=== PATIENT | male | born 1975 | race Two or more races ===

== ENCOUNTER 2023-08-31 13:08 | Inpatient (IN) | payer MEDICAID ==
[~2023-08-31] VITALS: Ht 172.7 cm; Wt 73.0 kg
[2023-08-31] MEDS ORDERED: ONDANSETRON HCL/PF 4 MG/2 ML VIAL ONE (13:30)
[2023-08-31] MEDS ORDERED: MORPHINE SULFATE INJ 4 MG/ML DISP.SYRIN ONE (13:31)
[2023-08-31] MEDS ORDERED: MORPHINE SULFATE INJ 2 MG/ML DISP.SYRIN ONE (13:31)
[2023-08-31] MEDS ORDERED: TDAP [DIPH/PERTUSSIS/TET] 0.5 ML VIAL IM ONE (13:32)
[2023-08-31] MEDS: TDAP [DIPH/PERTUSSIS/TET] 0.5 ML VIAL IM ONE (13:42)
[2023-08-31] MEDS: CEFAZOLIN 1 GM in IV D5W 50 ML IV ONE (13:42)
[2023-08-31] MEDS: MORPHINE SULFATE INJ 2 MG/ML DISP.SYRIN IV ONE (13:43)
[2023-08-31] MEDS: ONDANSETRON HCL/PF 4 MG/2 ML VIAL IVP ONE (13:43)
[2023-08-31 13:54] LABS: BASOPHILS % (AUTO) 0.5 % (0.0-2.0); EOSINOPHILS % (AUTO) 0.6 % (0.0-6.0); HEMATOCRIT 45 % (39-51); HEMOGLOBIN 15.3 g/dL (13.5-17.5); LYMPHOCYTES # (AUTO) 1.9 K/uL (0.8-4.8); LYMPHOCYTES % (AUTO) 23.5 % (20.0-44.0); MEAN CORPUSCULAR HEMOGLOBIN 31 PG (26.0-33.0); MEAN CORPUSCULAR HGB CONC 34 g/dl (31.0-36.0); MEAN CORPUSCULAR VOLUME 92 fL (80-96); MONOCYTES # (AUTO) 0.6 K/uL (0.1-1.30); MONOCYTES % (AUTO) 7.3 % (2.0-12.0); NEUTROPHILS # (AUTO) 5.6 K/uL (1.8-8.9); NEUTROPHILS % (AUTO) 68.1 % (43.0-81.0); PLATELET COUNT (AUTO) 297 K/uL (150-450); RED CELL DISTRIBUTION WIDTH 13.7 % (11.5-15.0); WHITE BLOOD COUNT (AUTO) 8.3 K/uL (4.3-11.0)
[2023-08-31] MEDS ORDERED: HYDROMORPHONE 1 MG/1 ML DISP.SYRIN ONE (13:57)
[2023-08-31 14:01] LABS: CALCIUM, SERUM 8.6 mg/dL (8.5-10.1); POTASSIUM 3.9 mmol/L (3.5-5.1)
[2023-08-31] MEDS: HYDROMORPHONE 1 MG/1 ML DISP.SYRIN IV ONE (14:02)
[2023-08-31 14:13] LABS: INR 1.02 (0.91-1.10); PARTIAL THROMBOPLASTIN TIME 21.9 SEC (24.3-34.3); PROTHROMBIN TIME 10.8 SECS (9.2-11.1)
[2023-08-31] MEDS ORDERED: ONDANSETRON HCL/PF 4 MG/2 ML VIAL IVP PRN (14:30)
[2023-08-31] MEDS ORDERED: ACETAMINOPHEN 325 MG TABLET PO PRN ×2 (14:30→19:30)
[2023-08-31] MEDS ORDERED: MAGNESIUM HYDROXIDE 30 ML UDC PO PRN (14:30)
[2023-08-31] MEDS ORDERED: Z GUARD REMEDY 4 OZ OINT TP PRN ×2 (14:30→17:15)
[2023-08-31] MEDS ORDERED: ANESTHESIA TRAY IN PYXIS 1 EA TRAY MC ONE (16:55)
[2023-08-31] MEDS ORDERED: BUPIVACAINE 0.25% 75 MG/30 ML VIAL ONE (16:56)
[2023-08-31] MEDS ORDERED: LIDOCAINE 1% INJ 50 ML MDV IJ ONE (16:56)
[2023-08-31] MEDS ORDERED: LIDOCAINE 1%-EPI 1:100,000 20 ML VIAL ONE (16:56)
[2023-08-31] MEDS ORDERED: ROPIVACAINE HCL 0.5% 5 MG/ML 30ML VIAL ONE (17:01)
[2023-08-31] MEDS ORDERED: FENTANYL PF 100MCG/2ML AMPUL ONE (17:02)
[2023-08-31] MEDS ORDERED: ROCURONIUM BROMIDE 50 MG/5 ML ONE (17:02)
[2023-08-31] MEDS ORDERED: FAMOTIDINE/PF INJ 20 MG/2 ML VIAL IV ONE (17:02)
[2023-08-31 17:11] LABS: APPEARANCE,URINE CLEAR (CLEAR); BILIRUBIN,URINE NEGATIVE (NEGATIVE); BLOOD, URINE NEGATIVE Ery/uL (NEGATIVE); COLOR,URINE YELLOW (YELLOW); KETONES,URINE TRACE mg/dL (NEGATIVE); LEUKOCYTE ESTERASE ,URINE NEGATIVE (NEGATIVE); NITRITE, URINE NEGATIVE (NEGATIVE); PROTEIN,URINE NEGATIVE (NEGATIVE); UGLUCOSE NEGATIVE (NEGATIVE); UROBILINOGEN,URINE 0.2 EU/dL (0.2)
[2023-08-31 17:21] LABS: ADD URINE CULTURE NO; BACTERIA,URINE n /HPF (None Seen); MUCUS,URINE Few /LPF (None Seen); RBC,URINE 0-2 /HPF (0-2); SQUAMOUS EPITHELIAL CELL,UR 0-2 /HPF (None Seen); WBC,URINE 0-2 /HPF (0-3)
[2023-08-31] MEDS ORDERED: POLYMYXIN B SULFATE 1,000,000 UNITS ONE (17:38)
[2023-08-31] MEDS ORDERED: MIDAZOLAM HCL 2 MG/2ML VIAL ONE (17:39)
[2023-08-31] MEDS ORDERED: SENNOSIDES 8.6 MG TABLET PO PRN ×2 (19:30)
[2023-08-31] MEDS ORDERED: ONDANSETRON HCL/PF 4 MG/2 ML VIAL IV PRN (19:30)
[2023-08-31] MEDS ORDERED: DOCUSATE SODIUM 100 MG CAPSULE PO PRN (19:30)
[2023-08-31 19:35] VITALS: BP 143/92; TEMP 97.5; O2SAT 95
[2023-08-31] MEDS: HYDROCODONE/APAP 5/325MG TABLET PO PRN (22:26)
[2023-09-01] MEDS: CEFTRIAXONE 2 G in IV NS 0.9% 100 ML IV SCH (01:21)
[2023-09-01] MEDS: HYDROCODONE/APAP 5/325MG TABLET PO PRN (05:21)
[2023-09-01 07:30] VITALS: BP 150/80; TEMP 98.4; O2SAT 94
[2023-09-01] MEDS: ENOXAPARIN SODIUM 40 MG/0.4 ML DISP.SYRIN SQ SCH (08:44)
[2023-09-01 16:00] VITALS: BP 144/89; TEMP 98.6; O2SAT 94
[2023-09-01 20:00] VITALS: BP 144/82; TEMP 98.2; O2SAT 96
[2023-09-01 20:30] VITALS: BP 144/82; TEMP 98.2; O2SAT 96
[2023-09-02] MEDS: CEFTRIAXONE 2 G in IV NS 0.9% 100 ML IV ONE (01:54)
[2023-09-02 06:54] LABS: BASOPHILS % (AUTO) 0.1 % (0.0-2.0); EOSINOPHILS % (AUTO) 0.3 % (0.0-6.0); HEMATOCRIT 40 % (39-51); HEMOGLOBIN 13.3 g/dL (13.5-17.5); LYMPHOCYTES # (AUTO) 1.1 K/uL (0.8-4.8); LYMPHOCYTES % (AUTO) 11.5 % (20.0-44.0); MEAN CORPUSCULAR HEMOGLOBIN 31 PG (26.0-33.0); MEAN CORPUSCULAR HGB CONC 33 g/dl (31.0-36.0); MEAN CORPUSCULAR VOLUME 93 fL (80-96); MONOCYTES # (AUTO) 1.2 K/uL (0.1-1.30); MONOCYTES % (AUTO) 12.2 % (2.0-12.0); NEUTROPHILS # (AUTO) 7.4 K/uL (1.8-8.9); NEUTROPHILS % (AUTO) 75.9 % (43.0-81.0); PLATELET COUNT (AUTO) 242 K/uL (150-450); RED CELL DISTRIBUTION WIDTH 13.6 % (11.5-15.0); WHITE BLOOD COUNT (AUTO) 9.8 K/uL (4.3-11.0)
[2023-09-02 07:23] LABS: CALCIUM, SERUM 8.2 mg/dL (8.5-10.1); CREATININE 0.8 mg/dL (0.6-1.3); MAGNESIUM 2.1 mg/dL (1.8-2.4); PHOSPHORUS 2.3 mg/dL (2.5-4.9); POTASSIUM 3.6 mmol/L (3.5-5.1)
[2023-09-02 07:30] VITALS: BP 155/94; TEMP 98.8; O2SAT 96
[2023-09-02] MEDS: K PHOS NEUTRAL 250 MG TABLET PO ONE (15:20)
[2023-09-02 16:00] VITALS: BP 165/98; TEMP 97.9; O2SAT 96
[2023-09-02 19:53] VITALS: BP 123/89; TEMP 97.9; O2SAT 99
[2023-09-02 21:03] VITALS: BP 148/101; TEMP 97.9; O2SAT 95
[2023-09-03 07:00] VITALS: BP 145/95; TEMP 98.1; O2SAT 98
[2023-09-03 07:07] VITALS: BP 144/89
[2023-09-03 16:00] VITALS: BP 162/113; TEMP 97.2; O2SAT 96
[2023-09-03] MEDS: MAG HYDROX/AL HYDROX/SIMETH 30 ML UDC PO PRN (19:48)
[2023-09-03 20:00] VITALS: BP 140/80; TEMP 98.2; O2SAT 94
[2023-09-03 20:15] VITALS: BP 140/80; TEMP 98.2; O2SAT 94
[2023-09-03 20:29] VITALS: BP 157/117; TEMP 98.2; O2SAT 94
[2023-09-03] MEDS: POLYETHYLENE GLYCOL 3350 17 GM POWD.PACK PO SCH (20:34)
[2023-09-03] MEDS: SENNOSIDES 8.6 MG TABLET PO SCH (20:34)
[2023-09-03] MEDS ORDERED: PHENYLEPHRINE/SHK LV/MO/PET,WH 30 GM TUBE RC PRN (23:30)
[2023-09-04 06:50] LABS: BASOPHILS % (AUTO) 0.4 % (0.0-2.0); EOSINOPHILS # (AUTO) 0.1 K/uL (0.0-0.7); EOSINOPHILS % (AUTO) 0.8 % (0.0-6.0); HEMATOCRIT 39 % (39-51); HEMOGLOBIN 13.4 g/dL (13.5-17.5); LYMPHOCYTES # (AUTO) 0.8 K/uL (0.8-4.8); LYMPHOCYTES % (AUTO) 9.3 % (20.0-44.0); MEAN CORPUSCULAR HEMOGLOBIN 32 PG (26.0-33.0); MEAN CORPUSCULAR HGB CONC 34 g/dl (31.0-36.0); MEAN CORPUSCULAR VOLUME 92 fL (80-96); MONOCYTES # (AUTO) 0.7 K/uL (0.1-1.30); MONOCYTES % (AUTO) 8.9 % (2.0-12.0); NEUTROPHILS # (AUTO) 6.5 K/uL (1.8-8.9); NEUTROPHILS % (AUTO) 80.6 % (43.0-81.0); PLATELET COUNT (AUTO) 304 K/uL (150-450); RED BLOOD CELL COUNT(AUTO) 4.27 MIL/uL (4.5-6.0); RED CELL DISTRIBUTION WIDTH 13.3 % (11.5-15.0); WHITE BLOOD COUNT (AUTO) 8.1 K/uL (4.3-11.0)
[2023-09-04 07:25] LABS: ALBUMIN 2.7 g/dL (3.4-5.0); BILIRUBIN,TOTAL 0.6 mg/dL (0.2-1.0); CREATININE 0.8 mg/dL (0.6-1.3); POTASSIUM 3.3 mmol/L (3.5-5.1); TOTAL PROTEIN, SERUM 6.5 g/dL (6.4-8.2)
[2023-09-04 08:00] VITALS: BP 161/100; TEMP 97; O2SAT 94
[2023-09-04] MEDS: PHENYLEPHRINE/SHK LV/MO/PET,WH 30 GM TUBE RC SCH (08:17)
[2023-09-04] MEDS: POTASSIUM CL. PREMIX PERIPHER. 50 ML IV SCH (11:00)
[2023-09-04] MEDS ORDERED: BUPIVACAINE 0.25% 75 MG/30 ML VIAL ONE (11:38)
[2023-09-04] MEDS ORDERED: POLYMYXIN B SULFATE 500,000 UNITS ONE (11:38)
[2023-09-04] MEDS ORDERED: ANESTHESIA TRAY IN PYXIS 1 EA TRAY MC ONE (12:21)
[2023-09-04] MEDS ORDERED: LIDOCAINE 1%-EPI 1:100,000 20 ML VIAL ONE (12:48)
[2023-09-04] MEDS ORDERED: BUPIVACAINE 0.5 % PF 150 MG/30 ML VIAL ONE (12:48)
[2023-09-04] MEDS ORDERED: FENTANYL PF 100MCG/2ML AMPUL ONE ×2 (12:48→15:53)
[2023-09-04] MEDS ORDERED: MIDAZOLAM HCL 2 MG/2ML VIAL ONE (12:48)
[2023-09-04] MEDS ORDERED: LABETALOL HCL IV 100MG VIAL ONE (15:16)
[2023-09-04] MEDS ORDERED: VANCOMYCIN 1 GM VIAL ONE (16:58)
[2023-09-04] MEDS ORDERED: SENNOSIDES 8.6 MG TABLET PO PRN (18:30)
[2023-09-04] MEDS ORDERED: DOCUSATE SODIUM 100 MG CAPSULE PO PRN (18:30)
[2023-09-04] MEDS ORDERED: BISACODYL SUPP (10 MG) 10 MG/SUPP.RECT SUPP.RECT RC PRN (18:30)
[2023-09-04] MEDS ORDERED: DOCUSATE SODIUM 250 MG CAPSULE PO PRN (18:30)
[2023-09-04] MEDS: METOPROLOL TARTRATE 25 MG TABLET PO SCH (19:57)
[2023-09-04] MEDS: CEFTRIAXONE 2 G in IV D5W 100 ML IV SCH (20:15)
[2023-09-04 20:45] VITALS: BP 146/84; TEMP 98.4; O2SAT 96
[2023-09-04] MEDS: ANCEF 1 GM/50 ML D5W IV SCH (21:59)
[2023-09-05] MEDS: MORPHINE SULFATE INJ 4 MG/ML DISP.SYRIN IV PRN (00:33)
[2023-09-05 06:28] VITALS: BP 151/86; TEMP 98.6; O2SAT 96
[2023-09-05 07:00] VITALS: BP 115/66; TEMP 98.2; O2SAT 96
[2023-09-05 08:06] LABS: CALCIUM, SERUM 8.6 mg/dL (8.5-10.1); CREATININE 0.8 mg/dL (0.6-1.3); POTASSIUM 3.3 mmol/L (3.5-5.1)
[2023-09-05] MEDS: HYDROCODONE/APAP 5/325MG TABLET PO PRN (08:08)
[2023-09-05] MEDS: POTASSIUM CHLORIDE 20 MEQ TAB.PRT.SR PO ONE (09:30)
[2023-09-05 16:00] VITALS: BP 165/90; TEMP 98.2; O2SAT 94
[2023-09-05 20:00] VITALS: BP 159/86; TEMP 98.2; O2SAT 96
[2023-09-05] MEDS: SENNOSIDES 8.6 MG TABLET PO PRN (21:26)
[2023-09-05] MEDS: ZOLPIDEM TARTRATE 5 MG TABLET PO PRN (22:58)
[2023-09-06 08:00] VITALS: BP 155/96; TEMP 98.6; O2SAT 96
[2023-09-06] MEDS: HYDROCODONE/APAP 5/325MG TABLET PO PRN (10:03)
== END 2023-09-06 16:20 | disposition home or self-care (01) | DRG 315 ==
LOC: ER 13:10 → MED 19:09
PROVIDERS: ADMIT Student in an Organized Health Care Education/Training Program
PROC: 0PBG0ZZ Excision of Left Humeral Shaft, Open Approach (ICD-10-PCS; principal; 2023-08-31)
PROC: 0PSG04Z Reposition Left Humeral Shaft with Internal Fixation Device, Open Approach (ICD-10-PCS; 2023-09-04)
PROC: 0PBG0ZZ Excision of Left Humeral Shaft, Open Approach (ICD-10-PCS; 2023-09-04)
DX: S42.402B Unspecified fracture of lower end of left humerus, initial encounter for open fracture (principal); I10 Essential (primary) hypertension; W22.09XA Striking against other stationary object, initial encounter; S01.112A Laceration without foreign body of left eyelid and periocular area, initial encounter; W11.XXXA Fall on and from ladder, initial encounter; Y92.9 Unspecified place or not applicable
CPT/HCPCS: 36415; 73060-TC; 73070-TC; 73080-TC; 73200-TC; 80048-TC; 80053-TC; 81001; 83735-TC; 84100-TC; 85025-TC; 85730-TC; 86850-TC; 87081-TC; 90715; 93307-TC; 97110-TC; 97116-TC; 97530-TC; A4217; A4223; A4565; A6253; A6402; A6403; C1713; G0378; J0690; J0696; J1100; J1170; J1650; J1885; J2250; J2270; J2405; J2704; J2765; J2795; J3010; J3370; J3480; J3490; J7030; J7040; J7050; J7060